=== PATIENT | female | born 1985 | race Caucasian/White ===

== ENCOUNTER 2016-09-07 20:16 | Emergency (ER) | payer BC, MEDICAID ==
[2016-09-07] MEDS ORDERED: Lidocaine 1% with EPINEPHrine 1:100,000 20 ML MDV INJECT ONE (20:31)
[2016-09-07] MEDS ORDERED: Clindamycin HCl 150 MG Cap PO ONE ×2 (21:00→21:32)
--- NOTE | 2016-09-07 21:26 | EDM.PDOC ---
ED HPI Skin/Rash - General Chief Complaint: Laceration Stated Complaint: LT HAND LAC Time Seen by Provider: 09/07/16 20:30 Source: Reports: Patient History Limitations: Reports: No limitations - History of Present Illness INITIAL COMMENTS - FREE TEXT/NARRATIVE: c/o hand lac last Td 1.5y ago, trying to open a toy with a knife which slipped and entered her R hand to a depth of 1 cm, dec'd feeling along the outside of her thumb - Related Data Allergies Allergy/AdvReac Type Severity Reaction Status Date / Time amoxicillin [Amoxicillin] Allergy Hives Verified 09/07/16 20:24 Home Meds: Ambulatory Orders Medication Instructions Recorded Confirmed NK [No Known Home Meds] 05/16/14 09/07/16 Past Medical History [employer] History: Reports: Social & Family History - Family History Family Medical History: Noncontributory - Tobacco Use Smoking Status *Q: Never Smoker Second Hand Smoke Exposure: No - Caffeine Use Caffeine Use: Reports: Soda - Alcohol Use Days Per Week of Alcohol Use: 4 Number of Drinks Per Day: 1 Total Drinks Per Week: 4 - Recreational Drug Use Recreational Drug Use: No ED ROS GENERAL - Review of Systems Review Of Systems: See Below Constitutional: Reports: no symptoms HEENT: Reports: No symptoms Respiratory: Reports: no symptoms Cardiovascular: Reports: No symptoms Endocrine: Reports: no symptoms GI/Abdominal: Reports: No symptoms : Reports: no symptoms Musculoskeletal: Reports: no symptoms Skin: Reports: wound Neurological: Reports: no symptoms Psychiatric: Reports: No symptoms Hematologic/Lymphatic: Reports: no symptoms Immunologic: Reports: no symptoms ED EXAM, SKIN/RASH Exam: See Below Exam Limited By: No limitations General Appearance: alert, WD/WN, no apparent distress Respiratory/Chest: no respiratory distress Cardiovascular: regular rate, rhythm Skin: Other Course - Vital Signs Last Recorded V/S: Last Vital Signs Temp 36.8 C 09/07/16 20:25 Pulse 80 09/07/16 21:22 Resp 14 09/07/16 21:22 BP 131/69 09/07/16 21:22 Pulse Ox 100 09/07/16 21:22 - Orders/Labs/Meds Orders: Active Orders 24 hr Category Date Time Status Clindamycin Phosphate [Cleocin] 600 mg Med 09/07/16 21:32 Ordered Sodium Chloride 0.9% [Normal Saline] 50 ml IV ONETIME Medication Orders Clindamycin Phosphate 600 mg/ (Sodium Chloride) 54 mls @ 150 mls/hr IV ONETIME ONE Stop: 09/07/16 21:53 Meds: Medications Generic Name Dose Route Start Last Admin Trade Name Freq PRN Reason Stop Dose Admin Clindamycin Phosphate 600 mg/ 54 mls @ 150 mls/hr 09/07/16 21:32 Sodium Chloride IV 09/07/16 21:53 ONETIME ONE Discontinued Medications Generic Name Dose Route Start Last Admin Trade Name Freq PRN Reason Stop Dose Admin Clindamycin HCl 600 mg 09/07/16 21:32 Cleocin PO 09/07/16 21:33 ONETIME ONE Lidocaine/Epinephrine 5 ml 09/07/16 20:31 Xylocaine 1% With Epinephrine 1:100,000 INJECT 09/07/16 20:32 ONETIME ONE - Re-Assessments/Exams Free Text/Narrative Re-Assessment/Exam: 09/07/16 21:35 pt with both nerve and tendon injury, good cap refill, FROM (flex , ext, abd/adduct), however there is tendon injury with probing wound with a sterile hemostat, the tendon is deeper and cannot be seen, the knife entered at an angle, ~1 cm below 1st MCP at entry and angled proximally. D/w Dr Arroyo, [place] [facility], who asked for antbx to be given and to see her in his clinic tomorrow where he will be from 8:30 to 11:15. Departure - Departure Time of Disposition: 21:38 Disposition: DC/Tfer to Hospice - Home 50 Condition: good Clinical Impression: Laceration of hand with tendon involvement, Nerve injury Forms: ED Department Discharge Additional Instructions: Keep laceration clean and dry. Keep covered with dressing. Take the clindamycin 150 mg 4 capsules in the morning before going to [place]. You will be seeing Dr Mohit Arroyo at [facility] at [address] Enter the building through the south door where there is a sign over the door saying Hand Surgery. You will proceed down the steps to the basement. The office phone is [phone]. You should be there at 8:30 AM. - My Orders Last 24 Hours: My Active Orders 09/07/16 21:32 Clindamycin Phosphate [Cleocin] 600 mg Sodium Chloride 0.9% [Normal Saline] 50 ml IV ONETIME - Assessment/Plan Last 24 Hours: My Active Orders 09/07/16 21:32 Clindamycin Phosphate [Cleocin] 600 mg Sodium Chloride 0.9% [Normal Saline] 50 ml IV ONETIME
[2016-09-07] MEDS ORDERED: Clindamycin HCl 150 MG Cap ONE (21:41)
[2016-09-07] MEDS ORDERED: Ketorolac 30 MG/ML SDV IVPUSH ONE (21:45)
[2016-09-07] MEDS ORDERED: Acetaminophen/HYDROcodone 325-5 MG Tab PO ONE (21:46)
[2016-09-07] MEDS ORDERED: Sodium Chloride 0.9% 10 ML Syringe FLUSH PRN (21:56)
[2016-09-07 23:03] VITALS: BP 150/88
== END 2016-09-07 22:41 | disposition home or self-care (01) ==
LOC: FB.ED 20:16
DX: S66.922A Laceration of unspecified muscle, fascia and tendon at wrist and hand level, left hand, initial encounter (principal); S64.92XA Injury of unspecified nerve at wrist and hand level of left arm, initial encounter; W26.0XXA Contact with knife, initial encounter; Z88.1 Allergy status to other antibiotic agents
CPT/HCPCS: 96365; 96375; 99283; A4217; A9270; J1885; J7050; S0077

== ENCOUNTER 2016-10-10 06:51 | Emergency (ER) | payer MEDICAID ==
[2016-10-10 10:30] VITALS: BP 136/74
--- NOTE | 2016-10-10 10:59 | US ---
INDICATION: Assess right ovary - right lower quadrant pain status post cholecystectomy, appendectomy, question ovarian cyst or migration of Mirena IUD out of uterus or fallopian pathology. PELVIC ULTRASOUND NON-OB LIMITED: Multiple ultrasonic images were obtained 05/2017 and were compared with 05/19/2014. The uterus measured 10 x 4 x 5.2 cm with an endometrial cavity echo of 10 mm. The right ovary measured 5.6 x 5.8 x 5.9 cm. The left ovary measured 2.2 x 1.8 x 2.2 cm. Echogenic focus in the endometrium appears to be an IUD. There is a poorly visualized hypoechoic mass at the right ovary which likely represents a follicular cyst, but is not well visualized. Endovaginal probe ultrasound will be necessary for further evaluation. The left ovary was unremarkable, but not well seen. No adnexal mass lesions or free fluid collections were identified. The tubes appear to be satisfactory in appearance. There may be a minimal amount of fluid in the endometrial cavity. IMPRESSION: IUD appears to be in place, but is not well seen. There may be a minimal amount of fluid in the endometrial cavity. Endovaginal probe ultrasound necessary for further evaluation of the endometrium and the right ovary where a cystic mass is noted. INDICATION: Assess right ovary - right lower quadrant pain status post cholecystectomy, appendectomy, question ovarian cyst, or migration of Mirena IUD out of uterus or fallopian pathology / need better visualization of the right ovary and endometrium. TRANSVAGINAL PELVIC ULTRASOUND: Utilizing transvaginal probe, multiple ultrasonic images revealed a small amount of free fluid in the posterior cul-de- sac. This may be physiologic. Fluid is noted in the endometrial cavity along with an echogenic focus which is compatible with an intrauterine device. The uterus measured 8.2 x 4.4 x 6 cm. The endometrial cavity echo measured 9.4 mm. No uterine mass was identified. The right ovary measured 6.2 x 5.8 x 5.8 cm, including a hypoechoic mass, which despite use of endovaginal probe was not very well seen. Likely, it represents a follicular cyst. A follow-up transvaginal or transabdominal pelvic ultrasound in 2 or 6 weeks is suggested to confirm involution, as a cystic neoplastic process is difficult to entirely exclude with less than ideal visualization. The left ovary was much smaller in size due to presence only of follicles and appeared normal. No adnexal mass lesions were identified. No tubular enlargement was suggested. IMPRESSION: 1. Endometrium slightly prominent with IUD apparently in place, but with fluid in the endometrial cavity. This should be correlated clinically. 2. Probable follicular cyst at the right ovary. However, follow-up is recommended, as neoplasia cannot be entirely excluded with relatively poor degree of visualization. Re-examination by pelvic ultrasound in 2 or 6 weeks is recommended. MTDD
--- NOTE | 2016-10-12 10:40 | ER ---
DATE SEEN: 10/10/2016 TIME SEEN: The patient was seen at 0815 hours. CHIEF COMPLAINT: Right lower quadrant abdominal discomfort. HISTORY OF PRESENT ILLNESS: This 6, para 5-1-0-5 with indeterminate last menstrual period, awoke three times last night with right lower quadrant abdominal discomfort that is sharp in character, 6/10 in intensity. Not like previous lower abdominal discomfort, and much of this is related to the infraumbilical region. She has no history of lifting. No history of fall, trauma, or kidney stones presently. The patient had kidney stones with her previous . The patient had nausea. Denies vomiting, fever, chills, hematochezia. No back pain. She has mild cough and mild GERD. PREVIOUS SURGERIES: , cholecystectomy, appendectomy. 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 She is busy with her children. No diabetes or heart disease. REVIEW OF SYSTEMS: HEENT: Negative. CARDIORESPIRATORY: Negative. GI: As noted above. Weighs 250 pounds. She notes that her weight has increased in last 2 to 3 months by 10 to 15 pounds and contributes that to the amount of stress. : No frequency, urgency, or dysuria. MUSCULOSKELETAL: She has mild hip and knee discomfort because of her weight. PSYCHIATRIC: Negative, otherwise. PHYSICAL EXAMINATION: VITAL SIGNS: Blood pressure 132/81, heart rate 89, respirations 18, oxygen saturation 99%, temperature is 36.6 degrees centigrade. GENERAL: Alert woman who is attended by her . He is also very pleasant, and she is the same. HEENT: PERRLA intact. Pharynx without abnormality. The patient constitutionally is mildly overweight. NECK: No thyromegaly or masses. LUNGS: Clear to auscultation without rales, rhonchi, or wheezes. HEART: S1, S2. No murmurs. ABDOMEN: Soft with mild voluntary guarding in right lower quadrant. No rebound noted. Bowel sounds present. No percussion tenderness. EXTREMITIES: Without tenderness. No linear tenderness. No swelling or erythema. NEUROLOGIC: Deep tendon reflexes hypoactive, but present in upper and lower extremities. Cranial nerves 2 through 12 intact. WORKING DIAGNOSES: Rule out ovarian cyst, rule out urinary tract infection. LABORATORY FINDINGS: White count is normal at 7,600, PMN 72, lymphs 21, monos 5, platelets 243,000, hemoglobin 15.3. Urinalysis is normal. C-reactive protein 0.5. Quantitative HCG is 3. Ultrasound of the pelvis demonstrated 4.8 right ovarian cyst without loss of circulation. ASSESSMENT: Right lower quadrant abdominal discomfort secondary to ovarian cyst. PLAN: Follow up with [facility]. Vicodin for breakthrough pain; otherwise, use Tylenol 1000 mg and 600 mg ibuprofen q.6 hours p.r.n. discomfort. Follow up with the doctor within a week or earlier if worse. /[id number] JL/LAVERN
== END 2016-10-10 09:15 | disposition home or self-care (01) ==
LOC: FB.ED 06:51
DX: N83.201 Unspecified ovarian cyst, right side (principal); K21.9 Gastro-esophageal reflux disease without esophagitis; Z90.49 Acquired absence of other specified parts of digestive tract
CPT/HCPCS: 36415; 76830; 76857; 81001; 84702; 85025; 86140; 99284